=== PATIENT | female | born 1990 | race Caucasian/White ===

== ENCOUNTER 2018-09-15 18:47 | Emergency (ER) | payer MEDICAID ==
[~2018-09-15] VITALS: Ht 167.6 cm; Wt 54.4 kg
--- NOTE | 2018-09-15 19:43 | NUR ---
Dr. Yeung at bedside for MSE.
[2018-09-15] MEDS ORDERED: IBUPROFEN 600 MG TABLET PO ONE (19:45)
[2018-09-15] MEDS ORDERED: IBUPROFEN 600 MG TABLET ONE (19:47)
[2018-09-15 19:50] VITALS: BP 100/72
== END 2018-09-15 19:54 | disposition home or self-care (01) ==
LOC: ER 18:50
DX: S40.011A Contusion of right shoulder, initial encounter (principal); S40.021A Contusion of right upper arm, initial encounter; M54.5 Low back pain; F17.200 Nicotine dependence, unspecified, uncomplicated; V43.52XA Car driver injured in collision with other type car in traffic accident, initial encounter; Y93.89 Activity, other specified; Y92.410 Unspecified street and highway as the place of occurrence of the external cause; Y99.8 Other external cause status
CPT/HCPCS: A4663